=== PATIENT | female | born 1965 | race Caucasian/White ===

== ENCOUNTER → 2023-06-07 07:04 | Outpatient (REF) | payer BC, SELFPAY | LOC: HWRAD 07:04 | PROVIDERS: ATTENDING PHYSICIAN Physician Assistant | DX: R10.10 Upper abdominal pain, unspecified (principal); R14.0 Abdominal distension (gaseous) | CPT/HCPCS: 76700 ==

== ENCOUNTER → 2024-01-22 08:35 | Outpatient (REF) | payer BC, SELFPAY | LOC: WDC 08:35 | PROVIDERS: ATTENDING PHYSICIAN Nurse Practitioner Family; FAMILY PHYSICIAN Internal Medicine | DX: Z12.31 Encounter for screening mammogram for malignant neoplasm of breast (principal) | CPT/HCPCS: 77063; 77067 ==

== ENCOUNTER → 2024-02-03 09:35 | Outpatient (REF) | payer BC, SELFPAY | LOC: HWRAD 09:35 | PROVIDERS: ATTENDING PHYSICIAN Nurse Practitioner Family; FAMILY PHYSICIAN Internal Medicine | DX: N95.0 Postmenopausal bleeding (principal) | CPT/HCPCS: 76830; 76856 ==

== ENCOUNTER 2024-03-26 06:15 | Day surgery (SDC) | payer BC, SELFPAY ==
[2024-03-19 10:42] LABS: % Basophils 0.3 % (0-2); % Lymphocytes 42.6 % (20.5-51.1); % Monocytes 6.8 % (1.7-9.3); % Neutrophils 49.3 % (42.2-75.2); Absolute Lymphocytes 1.6 10^3/uL (1.2-3.4); Absolute Monocytes 0.3 10^3/uL (0.1-0.6); Absolute Neutrophils 1.9 10^3/uL (1.4-6.5); Hematocrit 45.5 % (37.0-47.0); Hemoglobin 15.7 g/dL (12.0-16.0); Mean Corp Hgb Conc. 34.5 g/dL (33.0-37.0); Mean Corpuscular Hgb 31.3 pg (27.0-31.0); Mean Corpuscular Volume 90.6 fL (81.0-99.0); Mean Platelet Volume 9.4 fL (7.4-10.4); Nucleated Red Blood Cells % 0 %; Platelet Count 165 10^3/uL (130-400); Red Blood Cell Count 5.02 10^6/uL (4.20-5.40); Red Cell Dist. Width 12.4 % (11.5-14.5); White Blood Cell Count 3.9 10^3/uL (4.8-10.8)
[2024-03-19 11:09] LABS: Blood Urea Nitrogen 15 mg/dl (7-17); Calcium 8.5 mg/dl (8.4-10.2); Carbon Dioxide 27 mmol/L (22-30); Chloride 103 mmol/L (98-107); Glucose 131 mg/dl (70-99); Potassium 4.1 mmol/L (3.5-5.1); Sodium 138 mmol/L (135-145); eGFR > 60.00
[2024-03-19 12:53] VITALS: BMI 34.6
[2024-03-26 09:50] VITALS: BP 152/77
[2024-03-26] MEDS: NORMOSOL-R/PLASMALYTE-A 1000 IV (10:22)
[2024-03-26 10:25] VITALS: BMI 34.6
[2024-03-26 14:02] VITALS: BP 137/72; BP 152/77
[2024-03-26 14:15] VITALS: BP 120/57
[2024-03-26] MEDS: DILAUDID 0.5 MG IV (14:17)
[2024-03-26 14:46] VITALS: BP 127/61
[2024-03-26 15:15] VITALS: BP 131/91
== END 2024-03-26 15:25 | disposition home or self-care (01) ==
LOC: SDS 06:15
PROVIDERS: ATTENDING PHYSICIAN Obstetrics & Gynecology; FAMILY PHYSICIAN Physician Assistant
DX: N85.02 Endometrial intraepithelial neoplasia [EIN] (principal); N84.1 Polyp of cervix uteri; N95.0 Postmenopausal bleeding
CPT/HCPCS: 58558; 88305; 36415; 80048; 85025; 86850; 86900; 86901; 93005

== ENCOUNTER → 2024-10-13 13:26 | Outpatient (REF) | payer BC, SELFPAY | LOC: DHSLP 13:26 | PROVIDERS: ATTENDING PHYSICIAN Physician Assistant; FAMILY PHYSICIAN Internal Medicine | DX: G47.33 Obstructive sleep apnea (adult) (pediatric) (principal) | CPT/HCPCS: 95800 ==

== ENCOUNTER 2024-12-23 06:16 | Day surgery (SDC) | payer BC, SELFPAY | END 2024-12-23 11:14 | disposition home or self-care (01) | LOC: GI 06:16 | PROVIDERS: ATTENDING PHYSICIAN Internal Medicine; FAMILY PHYSICIAN Internal Medicine | DX: Z12.11 Encounter for screening for malignant neoplasm of colon (principal); D12.3 Benign neoplasm of transverse colon; K63.5 Polyp of colon; K62.1 Rectal polyp; Z86.0100 Personal history of colon polyps, unspecified | CPT/HCPCS: 45385; 45380; 88305 ==

== ENCOUNTER → 2025-01-27 08:21 | Outpatient (REF) | payer BC, SELFPAY | LOC: WDC 08:21 | PROVIDERS: ATTENDING PHYSICIAN Obstetrics & Gynecology Gynecologic Oncology; FAMILY PHYSICIAN Physician Assistant | DX: Z12.31 Encounter for screening mammogram for malignant neoplasm of breast (principal); C54.1 Malignant neoplasm of endometrium; Z85.3 Personal history of malignant neoplasm of breast | CPT/HCPCS: 77063; 77067 ==